=== PATIENT | male | born 1965 | race Caucasian/White ===

== ENCOUNTER 2023-05-19 06:30 | Day surgery (SDC) | payer OTHER ==
[~2023-05-19] VITALS: Ht 177.8 cm; Wt 125.0 kg
[2023-05-19 06:39] VITALS: BP 145/88; PULSE 91; TEMP 97.5
[2023-05-19] MEDS ORDERED: LIPITOR 10MG10 MG PO (06:47)
[2023-05-19] MEDS ORDERED: PRINIVIL10 MG PO (06:47)
--- NOTE | 2023-05-19 06:59 | NUR ---
The patient ambulated back to [facility] independently using a steady gait and appeared to tolerate the activity well. Vital signs obtained. Cosnent signed. 20G IV started in right hand with one stick, LR infusing without difficulty. Assessment completed. Home medications reconcilled. brought back to be at his bedside. Call light is within reach. Denies any further needs at this time.
[2023-05-19 08:33] VITALS: BP 109/78; PULSE 78; TEMP 97.2
[2023-05-19 08:50] VITALS: BP 110/75; PULSE 78
--- NOTE | 2023-05-19 09:09 | NUR ---
0833-PT ARRIVED VIA CART TO [facility], AMBULATED WITH SBA TO RECLINER. WARM BLANKET PROVIDED AND VITAL SIGNS TAKEN, VSS. PATIENT ALERT AND ORIENTED. TRANSFER OF CARE REPORT OBTAINED FROM EDDIE LUIS. PATIENT DENIES PAIN OR NAUSEA. OFFERED PO FLUIDS. DR. LAZO AT BEDSIDE TO DISCUSS PROCEDURE WITH PT AND SPOUSE AT BEDSIDE. 0850-PT TOLERATING PO FLUIDS WELL, DENIES PAIN OR NAUSEA. DISCHARGE INSTRUCTIONS REVIEWED. QUESTIONS INVITED. PT CHANGED CLOTHING INDEPENDENTLY. 09-IV CATHETER DISCONTINUED, TIP INTACT. PRESSURE HELD AND BANDAGE APPLIED. 903-PT DISCHARGED HOME TO [facility] VIA WHEELCHAIR, ACCOMPANIED BY SPOUSE. ALL BELONGINGS AND DC INSTRUCTIONS SENT WITH PT.
== END 2023-05-19 09:04 | disposition home or self-care (01) ==
LOC: SDCO 06:30
DX: Z12.11 Encounter for screening for malignant neoplasm of colon (principal); D12.4 Benign neoplasm of descending colon; D12.8 Benign neoplasm of rectum; K57.30 Diverticulosis of large intestine without perforation or abscess without bleeding; I10 Essential (primary) hypertension; Z79.899 Other long term (current) drug therapy
CPT/HCPCS: J2704; J3010; J7120